=== PATIENT | female | born 1980 | race Caucasian/White ===

== ENCOUNTER 2018-08-27 13:27 | Emergency (ER) | payer OTHER | END 2018-08-27 16:35 | disposition home or self-care (01) | LOC: FTE 13:27 | DX: M25.531 Pain in right wrist (principal); M25.532 Pain in left wrist; M25.552 Pain in left hip; M25.512 Pain in left shoulder | CPT/HCPCS: 73010; 73110-50; 73130-LT; 73510; 81025; 99284-25 ==